=== PATIENT | male | born 1985 | race Two or more races ===

== ENCOUNTER 2024-05-11 09:55 | Emergency (ER) | payer OTHER ==
[~2024-05-11] VITALS: Ht 175.3 cm; Wt 80.7 kg
[2024-05-11] MEDS ORDERED: DEXAMETHASONE SODIUM PHOSPHATE 4 MG/ML VIAL IM STA (13:43)
[2024-05-11] MEDS ORDERED: ORPHENADRINE CITRATE 30 MG/ML AMPUL IM STA (13:43)
[2024-05-11] MEDS ORDERED: KETOROLAC TROMETHAMINE 60 MG VIAL IM STA (13:49)
[2024-05-11] MEDS ORDERED: DEXAMETHASONE0.5 MG PO (16:00)
[2024-05-11] MEDS ORDERED: NORFLEX100MG PO (16:08)
== END 2024-05-11 16:35 | disposition home or self-care (01) ==
LOC: ER 09:58
DX: M54.50 Low back pain, unspecified (principal)
CPT/HCPCS: 72040; 72070; 72100; 96372; 99283; J1100; J1885; J2360